=== PATIENT | female | born 1940 | race Caucasian/White ===

== ENCOUNTER 2017-07-16 13:11 | Emergency (ER) | payer OTHER ==
[~2017-07-16] VITALS: Ht 162.6 cm; Wt 88.5 kg
[~2017-07-16 13:11] MED LIST: HYDROXYZINE50 MG PO; MEDROL DOSEPAK1 PAC PO
[2017-07-16 13:28] VITALS: BP 136/74
== END 2017-07-16 18:06 | disposition admitted as inpatient to this hospital (09) ==
LOC: ERH 13:11
DX: M54.2 Cervicalgia (principal); M25.511 Pain in right shoulder; W01.0XXA Fall on same level from slipping, tripping and stumbling without subsequent striking against object, initial encounter